=== PATIENT | male | born 1990 ===

== ENCOUNTER 2020-10-24 21:49 | Emergency (ER) | payer SELFPAY ==
[2020-10-24] MEDS ORDERED: Dexamethasone 10 MG/ML VIAL ONE (23:16)
[2020-10-25 06:12] LABS: SARS-CoV-2 PCR by NAA DETECTED (NotDetected)
== END 2020-10-24 22:39 | disposition home or self-care (01) ==
LOC: ERS 21:49
DX: U07.1 COVID-19 (principal); J12.82 Pneumonia due to coronavirus disease 2019
CPT/HCPCS: 71045; 87635; J1100; U0003; U0005